=== PATIENT | male | born 1970 | race Caucasian/White ===

== ENCOUNTER → 2023-10-23 07:12 | Outpatient (CLI) | payer OTHER, SELFPAY ==
--- NOTE | ~2023-10-23 | MR_ITS ---
MRI of the right shoulder Technique: Axial proton-density fat-sat images, coronal proton density fat-sat and T2 fat-sat images, and sagittal T1-weighted and T2 fat-sat images were acquired. Clinical History: Pain Findings: There is severe AC joint degenerative change, prominent bony productive change and inferior subacromial spur. Coracoclavicular, coracoacromial, and coracohumeral ligaments appear intact. There is moderate supraspinatus and infraspinatus tendinosis, without partial or full-thickness tear. Subscapularis tendon is intact, with mild tendinosis. Tendon of the long head of the biceps is intac t. There is probable degenerative attenuation of the superior labrum, extending to the anterosuperior an d posterior superior portions. Inferior glenohumeral ligament is intact. There is mild chondromalacia of the glenohumeral joint. The re is mild fluid distention of the subacromial/subdeltoid bursa. No muscle atrophy or edema. Impression: Severe AC joint degenerative change. Mild subacromial/subdeltoid bursitis. Probable degenerative attenuation of the superior labrum, without definite discrete, detached labral tear. Reviewed, dictated and finalized at [facility]. 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 Mild subacromial/subdeltoid bursitis. Probable degenerative attenuation of the superior labrum, without definite disc rete, detached labral tear.
== END ==
DX: R29.898 Other symptoms and signs involving the musculoskeletal system (principal); M19.011 Primary osteoarthritis, right shoulder; M75.51 Bursitis of right shoulder; G89.29 Other chronic pain
CPT/HCPCS: 73221

== ENCOUNTER 2024-06-19 16:57 | Emergency (ER) | payer OTHER, SELFPAY ==
[2024-06-19 17:06] VITALS: BP 127/73; PULSE 71; RESP 18; TEMP 36.5; O2SAT 100
--- NOTE | 2024-06-19 17:16 | ED.SKABFB ---
HPI - Skin/Abscess/Foreign Bdy General Chief complaint: Skin/Abscess/Foreign Body Stated complaint: Skin Problem/Hands Time Seen by Provider: 06/19/24 17:10 Source: patient and RN notes reviewed Mode of arrival: ambulatory Limitations: no limitations History of Present Illness HPI narrative: Patient presents today complaining a 2 week history of cracking skin on the palmar aspect of both hands and fingers as well as a one-week history of bumps to the same area. He has tried some lotion without relief. Patient works outside, frequently wearing rubber gloves where he sweats profusely on his hands. Related Data Allergies Allergy/AdvReac Type Severity Reaction Status Date / Time Chocolate Allergy Mild Uncoded 05/24/10 10:18 Review of Systems Review of Systems: CONSTITUTIONAL: Denies body aches, fever, chills, or sweats. EYES: Denies visual changes, redness, or discharge. ENT: Denies rhinorrhea, congestion, sore throat, or otalgia. CARDIOVASCULAR: Denies chest pain, palpitations, or edema. RESPIRATORY: Denies cough or dyspnea. GASTROINTESTINAL: Denies abdominal pain, nausea, vomiting, or diarrhea. GENITOURINARY: Denies dysuria or hematuria. SKIN: Rash to hands MUSCULOSKELETAL: Denies back pain, joint pain, or myalgia. NEUROLOGIC: Denies headache, numbness, tingling, or weakness. PSYCH: Denies depression or anxiety. PMFSH Comments At time of signature, I have reviewed and agree with nursing past medical, surgical, social and family history unless otherwise noted. Please see nursing chart for further information. There is no relevant family history pertinent to the presenting complaint Exam Narrative: GENERAL: Well-appearing, well-nourished, and in no acute distress. HEAD: Normocephalic, atraumatic. EYES: EOMI. No redness or drainage. Conjunctivae normal. ENT: Mucous membranes pink and moist. NECK: Normal AROM. CHEST: No respiratory distress. EXTREMITIES: Normal range of motion. No edema. SKIN: Capillary refill normal. Normal skin turgor.Dry, cracking, and peeling skin to the bilateral hands and all finger, palmar aspects. Also the sides of all fingers. There are also deep seated vesicles to the tips of the fingers noted. Cracking skin is slightly erythematous, but no signs of infection at this time. NEURO: No focal deficits. Alert and oriented x3. Gait steady. PSYCH: Normal affect. No signs of depression or anxiety. Course Course Level of Care: Express Care Visit Vital Signs Vital signs: Vital Signs Temperature 97.7 F 06/19/24 17:06 Pulse Rate 71 06/19/24 17:06 Respiratory Rate 18 06/19/24 17:06 Blood Pressure 127/73 06/19/24 17:06 Pulse Oximetry 100 06/19/24 17:06 Oxygen Delivery Room Air 06/19/24 17:06 Temperature 97.7 F 06/19/24 17:06 Pulse Rate 71 06/19/24 17:06 Respiratory Rate 18 06/19/24 17:06 Blood Pressure 127/73 06/19/24 17:06 Pulse Oximetry 100 06/19/24 17:06 Oxygen Delivery Room Air 06/19/24 17:06 Reviewed MDM - Skin/Abscess/Foreign Bdy MDM Narrative Medical decision making narrative: Patient will be treated with high potency steroid cream. Prescription for triamcinolone sent pharmacy. Anticipatory guidance given. Differential Diagnosis Differential diagnosis: Likely dermatophytosis, cellulitis, eczema, impetigo and contact dermatitis Critical Care Time Critical Care Time Critical Care Time: No Discharge Plan Discharge Clinical Impression: Dyshidrotic eczema Patient Disposition: Home, Self-Care Condition: Stable Instructions: Dyshidrotic Eczema (ED) Additional Instructions: You have been diagnosed with a specific type of eczema. Use the steroid cream as directed. Try to keep your hand out of areas where they sweat so much. Follow up with your PCP in 7-10 days if symptoms are not improving. Your blood pressure was elevated above 120/80 today at Urgent Care. This puts you above the threshold for follow up.
== END 2024-06-19 17:28 | disposition home or self-care (01) ==
PROVIDERS: Emergency Provider Nurse Practitioner
DX: L30.1 Dyshidrosis [pompholyx] (principal)
CPT/HCPCS: 99203; G0463